=== PATIENT | male | born 1940 | race Caucasian/White ===

== ENCOUNTER → 2021-10-05 10:25 | Outpatient (CLI) | payer MEDICARE, OTHER, SELFPAY ==
[2021-10-05 11:19] LABS: COVID19 -Nasal RAPID Negative (Negative)
== END ==
PROVIDERS: PCP Family Medicine; Visit Provider Urology
DX: Z20.822 Contact with and (suspected) exposure to COVID-19 (principal)
CPT/HCPCS: 87635; C9803

== ENCOUNTER 2021-10-08 13:27 | Day surgery (SDC) | payer MEDICARE, OTHER, SELFPAY ==
[2021-10-08] VITALS (20 sets, daily range): BP systolic 89–134; BP diastolic 37–71; PULSE 55–72; RESP 13–19; TEMP 36.1–37.2; O2SAT 94–98; BMI 30.4
--- NOTE | 2021-10-08 | PATH_ITS ---
[facility] Accession Number: [id number] . 01 Material submitted: . body - ANTERIOR BLADDER NECK/PROSTATE . 01 Clinical history: . CYSTOSCOPY/TRANSURETHRAL RESECTION OF BLADDER TUMOR MALIGNANT NEOPLASM OF BLADDER, UNSPECIFIED . 01 Diagnosis: Urinary Bladder, Anterior Neck/Prostate, Transurethral Resection: Invasive high-grade urothelial carcinoma. - Rare focus of lymphovascular invasion by carcinoma identified. - Carcinoma invades into prostatic stroma; definitive muscularis propria invasion not identified. Urothelial carcinoma in situ, flat. MRV 10/11/2021 1704 Local . 01 Comment: *Immunostains to the vascular marker ERG-1 and the muscle marker desmin are performed, with the controls stained appropriatel. The ERG-1 serves to highlight the rare focus of intravascular invasion by carcinoma, and the desmin serves to highlight the pattern of muscle distribution, none of which appears bundled, and is more in keeping with prostatic stroma. . Focally, the carcinoma appears to replace the prostatic glands/ducts. . This case is also reviewed by Dr. Jessie Roman, who concurs with the given interpretation. . * This test was developed and its performance characteristics determined by [facility]. It has not been cleared or approved by the U.S. Food and Drug Administration. The FDA has determined that such clearance or approval is not necessary. This test is used for clinical purposes. It should not be regarded as investigational or for research. . 01 Electronically signed: . Corinna Fisher MD, Pathologist NPI- [id number] . 01 Gross description: . Received in formalin in a specimen container, labeled with the patient's name and medical record number, anterior bladder neck/prostate, is an aggregate of multiple, irregularly shaped, slightly cauterized, gunn, soft, tissue fragments that measure 1.8 x 1.5 x 0.4 cm. The specimen is filtered and entirely submitted in cassette A1. ([id number]) /MRV 10/09/2021 1420 Local . 01 Pathologist provided ICD-10: C67.9 . 01 CPT . 866434, A39689, [id number] Specimen Comment: A courtesy copy of this report has been sent to [phone] Performed at: 01 [facility] [address] [place] [address], [place], [place] [id number] MD Jerry Roman MD Phone: [phone]
[2021-10-08] MEDS: LACTATED RINGERS 1,000 ML 42 ML IV (13:51)
--- NOTE | 2021-10-08 15:13 | PM.PREOP ---
Pre-operative Note COVID-19 Criteria for continued procedure: Expected advancement of disease process, Possibility delay results in more complex future surgery or treatment, Deterioration of the patient's condition or overall health, Delay expected to result in less-positive ultimate med/surg outcome and Non-surgical alternatives not available or appropriate per current SOC Interval Note History & Physical reviewed/Exam performed by Physician: Yes Changes to H&P: No
[2021-10-08] MEDS: CEFAZOLIN 2 GM/20 ML SYRINGE IV (16:00)
[2021-10-08] MEDS: TRANEXAMIC ACID 1,000 MG in SODIUM CHLORIDE 0.9% 100 ML 200 MG IV (16:09)
--- NOTE | 2021-10-08 16:15 | SUR.OPER ---
Lithotomy on padded OR bed, head on pillow, arms secured on padded arm boards at <90 degrees abduction. Legs secured in padded yellow fins stirrups.
[2021-10-08] MEDS: WATER FOR INJECTION,STERILE 20 ML, mitoMYcin 20 MG INTRAVESIC (16:37)
[2021-10-08] MEDS: BELLADONNA/OPIUM SUPPOSITORIES 1 EACH PR (16:45)
--- NOTE | 2021-10-08 16:52 | P.OP_ITS ---
Operative Date/Time/Diagnoses Date of procedure: 10/08/21 Time of procedure: 16:35 Pre-op diagnosis: 1. History of bladder cancer. Procedure & Clinicians Procedure: 1. Cystoscopy/TRANSURETHRAL RESECTION RECURRENT BLADDER TUMOR PROSTATE. 2. Cystoscopy/installation mitomycin-C (20). Same procedure as scheduled: Yes Indications: 1. History of recurrent bladder cancer. 2. Rule out recurrence at anterior bladder neck/prostate. Surgeon: Margie Sommers Click Yes if Unassisted: Yes Anesthesia Type: General Operative Notes Findings: 1. Urethra-normal caliber without annular stricture or lesion. 2. External sphincter-coapted with normal overlying urothelium. 3. Prostate-nonobstructing status post TUR. 4. Bladder-2+ trabeculation with cellule formation. Normal ureteral orifices bilaterally with clear efflux. There is suspicious, flat spreading papillary urothelium of the anterior bladder neck and possibly the very proximal anterior prostatic fossa. Closure Type: not applicable Specimen(s): other (TUR specimen from anterior bladder neck/prostate.) Applied: catheter (Twenty [place] Citizen Chua catheter gravity drainage.) Estimated Blood Loss (mL): 0 Blood products transfused: none Procedure in detail: The patient was positioned supine was administered general anesthesia. He was then repositioned semi lithotomy and the lower abdomen, genitalia, and groin were then prepped and draped in sterile fashion. The resectoscope was then advanced lower urinary tract with the findings as described above. The TUR loop was then connected to the working element in TUR of the aforementioned suspicious urothelium was then undertaken. Hemostasis was excellent. All chips were collected and submitted to pathology for routine gross and microscopic examination. The bladder was then left partially filled and the resectoscope was removed. A 20 [place] Citizen Chua catheter was then inserted, the balloon inflated 10 cc, and the bladder contents drained. Next, a 20 cc solution containing 20 mg of mitomycin-C were then instilled in the bladder and a catheter plug left in place for anticipated 2 hour postoperative retention. The patient was then repositioned supine, was awakened, and then was transferred to a rmoyers awake and in stable condition. Complications: none Post-operative Condition: stable Disposition: PACU Plan for aftercare: 1. Retained mitomycin-C x2 hours. 2. Discharge home with indwelling Chua catheter. 3. Schedule voiding trial in 2-3 days in the Urology Clinic.
--- NOTE | 2021-10-08 17:27 | SUR.PHASEI ---
Dr. Sommers ok'd discharge home; RN notified him that patient must be on a continuous pulse oximeter due to duramorph spinal. Patient A&O, continues to deny pain/nausea. Stable.
--- NOTE | 2021-10-08 17:44 | SUR.PHASEI ---
Felipa Juarez RN working to obtain transfer orders. Pt continues to deny pain/nausea. HOB lowered r/t lower BP. Hand-off report given.
--- NOTE | 2021-10-08 17:46 | SUR.PHASEI ---
Pt w/o transfer orders, Dr. Sommers notified, verbal telephone for transfer orders obtained, Janene, Coordinator states orders need to be put in by Dr. Sommers. [employer] dean concurred.Dr. De Leon made aware.
--- NOTE | 2021-10-08 18:27 | SUR.PHASEI ---
Orders obtained by Dr. Soler, placed in computer.
--- NOTE | 2021-10-08 18:39 | SUR.PHASEI ---
Report to MATHEW Richter. Mitomycin drained from bladder, new isabel bag placed as instructed. Pt transferred up to room.
--- NOTE | 2021-10-08 18:51 | SUR.PHASEI ---
Pt transfered up to room 209 and left in stable condition.
--- NOTE | 2021-10-08 19:01 | PC.NURSE ---
Pt arrived A&Ox3, pleasant without any complaints. VSS, on RA, afebrile. Chua intact draining clear yellow urine. He is settled into room, and oriented to room/unit. Endorsed to oncoming RN.
--- NOTE | 2021-10-08 19:13 | PC.NURSE ---
admit pt to AC from PACU at 1900. VSS. alert and oriented. Denies pain. Chua patent to gravity, blood tinged urine. Catheter secured to L leg. Pt able to feel touch to feet but states is less than normal r/t anesthesia. pt oriented to room and plan of care as well as call light. bed alarm on and pt educated about the same. Pt sitting up in bed, dinner tray provided.
[2021-10-08] MEDS: cephALEXin 250 MG CAPSULE PO (20:14)
[2021-10-08] MEDS: carvediloL 12.5 MG TABLET PO (20:14)
[2021-10-09 02:00] VITALS: BP 136/52; PULSE 70; RESP 16; TEMP 36.1; O2SAT 98
[2021-10-09 06:00] VITALS: BP 123/51; PULSE 77; RESP 18; TEMP 36.3; O2SAT 98
--- NOTE | 2021-10-09 07:43 | P.DS_ITS ---
History of Present Illness History of Present Illness Date Patient Seen: 10/09/21 Time Patient Seen: 07:43 Chief complaint: Cystoscopy/Transurethral Resection of Bladder Tumo Narrative: Patient is a 80-year-old male who has a history recurrent papillary u rothelial carcinoma the bladder diagnosed approximately 1 decade ago. Recent bladder tumor surveillance cystoscopy identified an area of urothelium suspicious for recurrent carcinoma in the region of the anterior bladder wall and bladder neck. He presented on 10/08/2021 and underwent uncomplicated transurethral resection of the anterior bladder neck and proximal prostatic fossa. He was admitted as outpatient with a bed due to the patient having had a Duramorph spinal anesthetic verses a standard spinal. Hospital policy/protocol required admission for observation following Duramorph spinal anesthetic. Discharge Providers Provider Discharge Date: 10/09/21 Primary care physician: Ross Nicole MD Discharge provider: Margie Sommers MD Summary Hospital Course Discharge Diagnosis: 1. History of recurrent urothelial carcinoma the bladder. 2. Rule out recurrent urothelial carcinoma the bladder. Hospital Course: The patient was admitted 10/08/2021 and underwent uncomplicated transurethral resection of the anterior bladder neck in proximal prostatic fossa, and installation of mitomycin-C under Duramorph spinal anesthesia. The patient was stable for discharge following recovery and retention of mitomycin-C for 2 hours. Because the patient received a Duramorph spinal anesthetic, Hospital protocol on/policy required admission for observation. The patient is in-hospital course was entirely unremarkable in terms of ability to tolerate general diet, and management of any postoperative discomfort. He provides no concerns or complaints this morning and states that he ?feels great?. Exam Vital Signs (past 8 hours): - 10/09/21 02:00 10/09/21 06:00 Temperature 97.0 F L 97.3 F L Pulse Rate 70 77 Respiratory Rate 16 18 Blood Pressure 136/52 L 123/51 L Pulse Oximetry 98 98 Oxygen Flow Rate 0 0 Oxygen Delivery Method Room Air Oxygen Flow Rate 0 Narrative Exam Narrative: Elderly fellow resting comfortably in bed in the upright position and in no distress. Abdomen-round and protuberant. Soft and nontender. Genitalia indwelling Chua catheter. Outflow is very light pink tinged without clots. [facility] Medical History Bladder cancer Coronary heart disease History of primary bladder cancer Hypertension Recurrent malignant neoplasm of bladder Surgical History History of appendectomy History of cystoscopy Family History Father Cancer Hypertension Coronary artery disease Social History marital status: number of children: 3 household members: spouse occupational status: previously employed Smoking Status: Former smoker Tobacco: How many years used: 30 alcohol intake: current caffeine: Yes Discharge Assessment & Plan Assessment and Plan Assessment: 1. Stable postop day 1 status post transurethral resection the anterior bladder neck and prostate, and installation mitomycin-C. 2. Pathology pending. Plan of Treatment: 1. Remove Chua catheter and conduct voiding trial this morning. 2. Discharge to home today. 3. Follow-up pathology report when final and review telephonically. Postoperative follow-up in the urology clinic will be determined based on final pathology report. 4. Prescription for oxycodone and for cephalexin were provided. Common side effects, precautions, and intake instructions were explained. Discharge Plan Discharge Plan Patient Disposition: Home Provider Discharge Comment: Please contact Urology Clinic 10/09/2021 to schedule outpatient follow-up. Nursing Discharge Comment: You were given Torodol 15mg at 4:30pm. Do not take any NSAIDS (Aleve, Advil, ibuprofen, etc) before 10:30pm Discharge orders & Medications Discharge Orders: Discharge (Order); Ordered 10/09/21 Ordered By: Margie Sommers Prescriptions: New cephalexin 250 mg capsule 250 mg PO BID Qty: 10 0RF oxycodone 5 mg tablet 5 mg PO Q6H PRN (Reason: pain) Qty: 10 0RF Continued omega-3 fatty acids [Fish Oil Concentrate] 1,000 mg capsule 1,000 mg PO DAILY acetaminophen 500 mg capsule 500 mg PO Q6H PRN (Reason: Pain (Scale Score 4-6)) aspirin [Adult Aspirin Regimen] 81 mg tablet,delayed release (DR/EC) 81 mg PO DAILY atorvastatin 40 mg tablet 40 mg PO DAILY citalopram 20 mg tablet 20 mg PO DAILY losartan 50 mg tablet 50 mg PO DAILY torsemide 20 mg tablet 20 mg PO DAILY Label Comments: diuretic carvedilol [Coreg] 12.5 mg tablet 12.5 mg PO BID Rx Instructions: must administer with a meal/food finasteride 5 mg tablet 5 mg PO DAILY Qty: 90 3RF Follow up/Referrals: Ross Nicole MD [Primary Care Provider] - Margie Sommers MD [Physician] - Diet/Activity/Treatments Diet: Diet as Tolerated Activity: No restrictions beginning 10/09/2021 Catheter: 2-way Chua Catheter comment: Leg bag-use daytime and out of home. Large bag-use at night and in-home. Skin/Wound/Dressing Care Report to your healthcare provider any signs of infection, such as:: chills, fever, night sweats, increased pain and unusual drainage Visit Report/Discharge Packet Instructions: How to Care for Your Chua Catheter -- Male, DI for Transurethral Resection of the Prostate Stand Alone Forms: Surgery Discharge Discharge Data Primary Care Provider: Ross Nicole Attending Provider: Margie Sommers Quality VTE Deep Vein Thrombosis/Pulmonary Embolism Present on Admission: No
[2021-10-09 08:00] VITALS: BP 130/52; PULSE 54; RESP 17; TEMP 35.9; O2SAT 99
[2021-10-09 08:17] VITALS: BP 123/51; PULSE 77
[2021-10-09] MEDS: CITALOPRAM 10 MG TABLET 20 MG PO (08:17)
[2021-10-09] MEDS: carvediloL 12.5 MG TABLET PO (08:17)
[2021-10-09 08:18] VITALS: BP 123/51; PULSE 77
[2021-10-09] MEDS: cephALEXin 250 MG CAPSULE PO (08:18)
[2021-10-09] MEDS: FINASTERIDE 5 MG TABLET PO (08:18)
[2021-10-09] MEDS: LOSARTAN 50 MG TABLET PO (08:18)
[2021-10-09] MEDS: ASPIRIN EC 81 MG TABLET PO (08:18)
[2021-10-09] MEDS: FISH OIL 1,000 MG CAPSULE 1000 MG PO (08:24)
[2021-10-09] MEDS: TORSEMIDE 10 MG TABLET 20 MG PO (08:24)
[2021-10-09 12:00] VITALS: BP 105/39; PULSE 64; RESP 17; TEMP 36.4; O2SAT 98
--- NOTE | 2021-10-09 12:56 | CM.DANOTE ---
DCP Assessment: Payor: Medicare PCP: MD Bonnie Pt is a 80 y.o. M who was admitted for status post cystoscopy and transurethral resection on 10/08. DCP met with pt this morning to inquire about discharge needs. Pt was sitting up in bed drinking water. DCP introduced herself and role. Pt states that he lives in a 2 story house in [place] with his spouse, Adriana. Pt is independent at baseline and does not use any DME's. Pt states that he still drives. Pt states that he is getting discharged today. Discharge orders have been placed. Pt declines any discharge needs at this time. DCP does not identify any needs for pt. White board updated and instructed to call with any questions that may arise. P: Once pt is medically stable, pt to discharge home via spouse POV and following up with urology clinic in 2-3 days. Dede Correa RN/CONNOR Discharge Planning/Care Management CM Discharge Assessment Start: 10/09/21 09:33 Freq: Status: Active Protocol: Document 10/09/21 09:33 BLANK (Rec: 10/09/21 09:34 [id number]) Discharge Planning Assessment Assigned Sulky Driver Dede Correa RN/CONNOR Advance Directives? No History Provided By Patient Prior Living Arrangements House Household Members spouse Type of transporation used prior to Drives own vehicle admit Independent with ADL's Yes Is patient alert and oriented? Yes Caregiver for Another No Discharge Plan Home Transportation Arrangement Spouse POV Referrals Initiated None needed Whiteboard Updated in Patient Room with No name and ext. # of Sulky Driver Comment Pt discharging this morning. Review Status In Process Please Provide Date Initial DC 10/09/21 Assessment Was Performed Next Review Type Continued Stay Review
--- NOTE | 2021-10-09 15:02 | PC.NURSE ---
Pt is A&Ox3, VSS, afebrile on RA. He denies pain, and is ambulating independently in his room this a.m. Urologist at bedside this a.m. reviewing plan for discharge and patient is cleared for discharge 4 hours after isabel removal pending bladder scan residual <250cc. His isabel is dc'd at 0800 a.m. Pt tolerates meals well and drinks several cups of coffee and water this a.m. After lumch at 1330 bladder scan results 90-130 cc. notified and patient discharges home. He verbalizes understanding of plan for follow up with urology and home medications. He does have a small void and bm prior to discharge. He is escorted to private vehicle via w/ch with all of his belongings to meet his for discharge home at approximately 1400.
== END 2021-10-09 13:56 | disposition home or self-care (01) ==
LOC: OR 13:28 → AC 13:28
PROVIDERS: PCP Family Medicine; Referring Provider Specialist; Visit Provider Specialist
PROC: 0VT08ZZ Resection of Prostate, Via Natural or Artificial Opening Endoscopic (ICD-10-PCS; CPT 52601; principal; 2021-10-08 14:45)
DX: Z85.51 Personal history of malignant neoplasm of bladder (principal); C67.9 Malignant neoplasm of bladder, unspecified; I25.10 Atherosclerotic heart disease of native coronary artery without angina pectoris; I10 Essential (primary) hypertension; E78.5 Hyperlipidemia, unspecified
CPT/HCPCS: 52500; 36415; 82962; A9270; J0690; J1100; J1885; J2250; J2274; J2405; J2704; J3010; J9280

== ENCOUNTER → 2021-10-16 12:55 | Outpatient (CLI) | payer MEDICARE, OTHER, SELFPAY ==
[2021-10-08 13:29] VITALS: BMI 30.4
[2021-10-16 14:50] LABS: BUN Creatinine Ratio 25.9 (6-22); Blood Urea Nitrogen 21 mg/dL (9-20); Calcium 8.7 mg/dL (8.4-10.2); Carbon Dioxide 29 mmol/L (22-32); Chloride 100 mmol/L (98-107); Estimated Glomerular Filt Rate > 60 mL/min (>60); Glucose 165 mg/dL (80-110); HEMOLYSIS < 15 (0-50); Potassium 4.5 mmol/L (3.4-5.1); Sodium 136 mmol/L (137-145)
== END ==
PROVIDERS: PCP Family Medicine; Referring Provider Specialist; Visit Provider Specialist
DX: Z01.812 Encounter for preprocedural laboratory examination (principal)
CPT/HCPCS: 36415; 80048

== ENCOUNTER → 2021-10-17 11:34 | Outpatient (CLI) | payer MEDICARE, OTHER, SELFPAY ==
[2021-10-08 13:29] VITALS: BMI 30.4
--- NOTE | 2021-10-17 11:36 | DI.CT.S_ITS ---
PROCEDURE: CT CHEST ABD PEL W CON INDICATIONS: CA TECHNIQUE: After the administration of oral and intravenous contrast, axial sections acquired from the supraclavicular neck to the pubic symphysis. Coronal and sagittal reformats were performed. For radiation dose reduction, the following was used: automated exposure control, adjustment of mA and/or kV according to patient size. COMPARISON:[facility], CT, ABD/PELVIS W&WO CON (PNL), 07/17/2011, 9:22. [facility], CT, ABD/PELVIS W&WO CON (PNL), 03/29/2013, 9:51. [facility], CT, CT IVP, 06/07/2021, 17:52. [facility], CT, CT IVP, 08/05/2017, 8:29. FINDINGS: Image quality: Excellent. CHEST: Lower Neck: No enlarged lymph nodes. Thyroid: Within normal limits. Axillae: No enlarged lymph nodes. Chest Wall: Unremarkable. Lungs and Airways: Within the posterior aspect of the left upper lobe, there is focal poorly defined opacity seen, as on series 3, image 75 that measures up to 3.5 cm. A few subpleural blebs can be seen. The lungs otherwise appear clear. Pleura: No pneumothorax or pleural effusions. Heart: Post CABG changes are seen. At least moderate coronary artery calcification can be seen. Heart size is normal. No pericardial effusion. Thoracic Vessels: The aorta and pulmonary arteries demonstrate normal size. Mediastinum and Nori: No enlarged lymph nodes. Esophagus: No wall thickening. There is a small hiatal hernia. ABDOMEN: Liver: Unremarkable. Gallbladder: Unremarkable. Biliary ducts: Unremarkable. Pancreas: Unremarkable. Spleen: Unremarkable. Adrenal Glands: Unremarkable. Kidneys and Ureters: A nonenhancing 2.8 cm cyst is seen at the inferior pole of the right kidney. The kidneys demonstrate normal size and enhance symmetrically. No suspicious renal masses are seen. No filling defects can be seen within the ureters. Stomach and Bowel: Stomach, small bowel loops, and colon are unremarkable. Peritoneum: No abnormal intraperitoneal fluid. No free air. Ventral Wall: No hernia. Abdominal Nodes: An apparent low-density enlarged aortocaval lymph node is seen, as on series 2, image 69 measuring 21 by 14 mm in greatest axial dimension. This lymph node has increased in size over time. No definite additional retroperitoneal lymph nodes are seen. No enlarged abdominal lymph nodes can be seen Vessels: Aorta and inferior vena cava are normal in size. Atherosclerotic calcification is noted. PELVIS: Pelvic Organs: A prior TURP defect can be seen. Bladder: Bladder wall thickening is seen, particularly inferiorly. Pelvic Nodes: No enlarged lymph nodes.. Miscellaneous: No inguinal hernias are seen. Bones: Age-appropriate bony degenerative changes are seen. IMPRESSION: Within the left upper lobe, there is a focus of poorly defined opacity seen. This is felt most likely to be related to infectious or inflammatory change. Metastatic disease is considered to be unlikely for this lesion. Please consider a follow-up noncontrast chest CT in 8-12 weeks for further evaluation. There is bladder wall thickening seen, particularly inferiorly. Please consider cystoscopy for further evaluation. There is an apparent mildly enlarged aortocaval lymph node, which has increased in size over time. Differential diagnosis includes a metastatic lymph node. Incidental note is made of: CABG At least moderate coronary artery calcification Small hiatal hernia Simple appearing right renal cyst TURP defect Dictated by: Pablito Sifuentes M.D. on 10/17/2021 at 13:45 Approved by: Pablito Sifuentes M.D. on 10/17/2021 at 13:53
== END ==
PROVIDERS: PCP Family Medicine; Referring Provider Specialist; Visit Provider Specialist
DX: C67.9 Malignant neoplasm of bladder, unspecified (principal); R91.8 Other nonspecific abnormal finding of lung field; R59.0 Localized enlarged lymph nodes; I25.10 Atherosclerotic heart disease of native coronary artery without angina pectoris; K44.9 Diaphragmatic hernia without obstruction or gangrene; N28.1 Cyst of kidney, acquired
CPT/HCPCS: 71260; 74177; Q9967

== ENCOUNTER → 2021-11-29 09:17 | Outpatient (CLI) | payer MEDICARE, OTHER, SELFPAY ==
[2021-10-08 13:29] VITALS: BMI 30.4
[2021-11-29 10:53] LABS: COVID19 -Nasal RAPID Negative (Negative)
== END ==
PROVIDERS: PCP Family Medicine; Visit Provider Surgery
DX: Z01.812 Encounter for preprocedural laboratory examination (principal); Z20.822 Contact with and (suspected) exposure to COVID-19
CPT/HCPCS: 87635; C9803

== ENCOUNTER → 2021-11-30 09:23 | Outpatient (CLI) | payer MEDICARE, OTHER, SELFPAY ==
[2021-10-08 13:29] VITALS: BMI 30.4
== END ==
PROVIDERS: PCP Family Medicine; Referring Provider Specialist; Visit Provider Specialist
DX: C67.9 Malignant neoplasm of bladder, unspecified (principal); Z85.51 Personal history of malignant neoplasm of bladder

== ENCOUNTER 2021-11-30 09:24 | Day surgery (SDC) | payer MEDICARE, OTHER, SELFPAY ==
[2021-10-08 13:29] VITALS: BMI 30.4
[2021-11-28 15:08] VITALS: BMI 31.9
--- NOTE | 2021-11-30 | DI.RAD.S_ITS ---
PROCEDURE: XR CHEST 1V INDICATIONS: port-a-cath post op TECHNIQUE: One view of the chest was acquired. COMPARISON: [facility], CT, CT CHEST ABD PEL W CON, 10/17/2021, 13:02. [facility], CR, XR CHEST 1V, 11/30/2021, 14:31. FINDINGS: Surgical changes and devices: Right-sided port with the catheter tip projecting at the upper 3rd of the SVC. Post median sternotomy and CABG. Lungs and pleura: Lungs are clear. No pleural effusions or pneumothorax. Mediastinum: Mediastinal contours appear normal. Heart size is normal. Bones and chest wall: No suspicious bony lesions. Overlying soft tissues appear unremarkable. IMPRESSION: Right-sided port with the catheter tip projecting at the upper 3rd of the SVC. No pneumothorax. Dictated by: Dutch Guy M.D. on 11/30/2021 at 15:38 Approved by: Dutch Guy M.D. on 11/30/2021 at 15:39
--- NOTE | 2021-11-30 | DI.RAD.S_ITS ---
PROCEDURE: XR CHEST 1V INDICATIONS: PORTACATH PLACEMENT TECHNIQUE: Multiple spot fluoroscopic images of the right chest. COMPARISON: None. FINDINGS: Multiple spot fluoroscopic images of the chest does show interval placement of a Port-A-Cath in good position. For detailed report please see the procedure notes. IMPRESSION: Interval placement of a right-sided Port-A-Cath which appears in good position. For detailed report see the procedure note. Dictated by: Wilfred Grider M.D. on 11/30/2021 at 15:43 Approved by: Wilfred Grider M.D. on 11/30/2021 at 15:45
--- NOTE | 2021-11-30 09:25 | DI.NM.S_ITS ---
PROCEDURE: NM BONE SCAN WHOLE BODY RADIOPHARMACEUTICAL: 19.7 mCi Tc-99m MDP IV. INDICATIONS: Bladder CA TECHNIQUE: Delayed whole-body scintigrams were obtained approximately 3-4 hours after intravenous injection of radiotracer. Anterior and posterior views were acquired from vertex to feet. Additional left and right oblique views of the pelvis and hips were obtained. COMPARISON: [facility], CT, CT CHEST ABD PEL W CON, 10/17/2021, 13:02. FINDINGS: No lesions are identified in skull, sternum, clavicles, scapulae, ribs, bony pelvis, and visualized shafts of the long bones. There is low level increased uptake in cervical, thoracic and lumbar spine with distribution indistinguishable from degenerative disc and facet disease; early metastasis to spine could be obscured by degenerative changes. There are foci of increased periarticular activity involving compatible with degenerative/arthritic changes. There are postsurgical changes related to right knee arthroplasty. IMPRESSION: 1. No definitive scintigraphic findings to suggest osseous metastatic disease. 2. 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 Recommend radiographic correlation if clinically indicated. Dictated by: George Piper M.D. on 11/30/2021 at 17:23 Approved by: George Piper M.D. on 11/30/2021 at 17:25
[2021-11-30 12:05] VITALS: BMI 31.9
[2021-11-30 12:28] VITALS: BP 151/57; PULSE 60; RESP 16; TEMP 36.7; O2SAT 99
--- NOTE | 2021-11-30 12:29 | SUR.PREOP ---
Pt to Radiology in for nuc med scan
[2021-11-30] MEDS: LACTATED RINGERS 1,000 ML 42 ML IV (13:12)
--- NOTE | 2021-11-30 13:30 | PM.PREOP ---
Pre-operative Note COVID-19 COVID-19 status: Negative Interval Note History & Physical reviewed/Exam performed by Physician: Yes Changes to H&P: No
[2021-11-30] MEDS: CEFAZOLIN 2 GM/100 ML PREMIX 100 ML IV (13:41)
--- NOTE | 2021-11-30 14:03 | SUR.OPER ---
Supine on padded OR bed, head on gel donut, towel roll under shoulders, arms padded and tucked at sides, legs uncrossed, safety belt at thigh, tape over blanket over lower legs .
[2021-11-30] MEDS: HEPARIN 5,000 UNIT, SODIUM CHLORIDE 0.9% 50 ML IV (14:17)
[2021-11-30] MEDS: BUPIVACAINE 0.5% W/ EPI (PF) 30 ML VIAL INJ (14:17)
[2021-11-30 15:00] VITALS: BP 157/65; PULSE 62; RESP 18; TEMP 36.8; O2SAT 99
[2021-11-30 15:05] VITALS: BP 157/65; PULSE 57; RESP 16; O2SAT 99
[2021-11-30 15:10] VITALS: BP 154/64; PULSE 58; RESP 16; TEMP 36.2; O2SAT 99
[2021-11-30 15:15] VITALS: BP 154/65; PULSE 61; RESP 16; O2SAT 98
--- NOTE | 2021-11-30 15:20 | PM.OP.1 ---
Operative Date/Time/Diagnoses Date of procedure: 11/30/21 Pre-op diagnosis: Recurrent bladder cancer. Post-op diagnosis: same Procedure & Clinicians Procedure: Port-A-Cath placement Same procedure as scheduled: Yes Indications: 81-year-old male with recurrent bladder cancer in need of chemotherapy. Surgeon: Linda Ferraro Click Yes if Unassisted: Yes Anesthesia Type: MAC +/- Operative Notes Findings: Mr. Rice was taken to the operating room placed supine on the operating room table. Time-out was performed. Preoperative antibiotics administered. Bilateral SCDs were in place and running. The right subclavian and IJ area were prepped and draped in the usual sterile fashion. Ultrasound was sterilely prepped and draped. The subclavian vein was identified using an ultrasound there was some dark shadowing obscuring the view. I made an attempt to enter the subclavian vein on the right side with the introducer needle using ultrasound sound guidance. I did enter the subclavian vein and dark blood was seen, however at that very moment the patient moved, and I lost the access. I made 1 further attempt unsuccessfully at the subclavian vein. I then turned my attention to the right jugular vein which I identified using ultrasound and placed a needle into easily after infusing local anesthetic around the area. A Seldinger wire was used to enter the vein and identify the correct location. The 1st wire had a kink in it after the initial attempt to introduce it and a new wire was taken from a separate kit and used successfully. The correct location of the wire was verified using fluoroscopy. Films were saved. We also saw ectopy on the monitor and withdrew the wire by a few cm to remediate that. After verifying the correct placement of the wire, the introducer needle was removed and the skin was incised with an 11 blade scalpel and the dilator was placed over the wire. Next the dilator was removed with the wire and the channel remained in place. The catheter was flushed and then introduced through the channel to a depth of 18 cm at the skin. The channel was broken and removed in the usual fashion. Next I infused some more local anesthetic and created an incision for the creation of a pocket for the button the pocket was opened using electrocautery I then infused further local anesthesia at each in the direction of the channel leading from the opening where the catheter was protruding each leading down to the pocket. I then used the dissector to bring the catheter into the pocket, and cut the catheter at a length of 20 cm. I attached it to the button and placed the button in the pocket and took a final x-ray. This showed a good location of the catheter and the access button. I flushed the catheter with heparin solution: there was back flow and easy forward flushing. I then secured the button using 2x 3-0 Prolene sutures. I closed some subQ around it using 3-0 Vicryl sutures and I closed the skin with a running 4-0 Monocryl. I dressed the incision with Steri-Strips as well as the small incision on the neck. Mr. Manning tolerated the procedure well and went in good condition to the postoperative care unit a portable chest x-ray was ordered in the PACU and reviewed by me personally there was no evidence of pneumothorax and the catheter remained in a good location. Closure Type: primary Specimen(s): none sent Complications: none Post-operative Disposition: PACU
[2021-11-30 15:30] VITALS: BP 130/70; BP 150/75; PULSE 61; PULSE 66; RESP 16; TEMP 36.8; O2SAT 98
== END 2021-11-30 15:58 | disposition home or self-care (01) ==
PROVIDERS: PCP Family Medicine; Referring Provider Surgery; Visit Provider Surgery
PROC: (CPT 36561; principal; 2021-11-30 13:30)
DX: C67.9 Malignant neoplasm of bladder, unspecified (principal); I10 Essential (primary) hypertension; I25.10 Atherosclerotic heart disease of native coronary artery without angina pectoris; Z95.1 Presence of aortocoronary bypass graft; E78.00 Pure hypercholesterolemia, unspecified
CPT/HCPCS: 36561; 00532; 71045; 76000; 78306; A9503; C1788; J0690; J1644; J2250; J3010